=== PATIENT | female | born 1935 | race Caucasian/White ===

== ENCOUNTER → 2017-03-19 | Outpatient (CLI) | payer MEDICARE, OTHER ==
[~2017-03-19] MED LIST: ALEN70TA42 PO; ASCO100T15 PO; BILB30CA PO; BIOT10TA3 PO; BLUEBERRY PO; CALC-18 PO; CARB25DR2 OP; CELE-1 PO; CEP500 PO; CHOL400C10 PO; CHRO400T2 PO; COPP2CAP2 PO; CYCL1DRO6 OP; DOCU50CA PO; FERR159T PO; GLUC-158 PO; GLUC500C29 PO; HYAL0.5P MC; LUTE10TA3 PO; MAGN100T PO; METH500C6 PO; METH500T6 PO; MULT-1367 PO; MULT-865 PO; NIAC50TA13 PO; OMEG-11 PO; PER PO; PHYT100T4 PO; PROP10DR5 OP; SELE50TA16 PO; SYSTANEPT OD; THIA25PO MC; UBID1CAP94 PO; VITA100T PO; VITA1CAP46 PO; ZINC10LO9 PO; [UNRECOGNIZED DRUG - CODE] MC; [UNRECOGNIZED DRUG - CODE] MC; [UNRECOGNIZED DRUG - CODE] MC; [UNRECOGNIZED DRUG - CODE] MC; [UNRECOGNIZED DRUG - CODE] MC; [UNRECOGNIZED DRUG - CODE] OP; [UNRECOGNIZED DRUG - CODE] PO; [UNRECOGNIZED DRUG - CODE] PO; [UNRECOGNIZED DRUG - OTHER] PO; [UNRECOGNIZED DRUG - OTHER] PO; [UNRECOGNIZED DRUG - OTHER] PO
[2017-03-19 12:51] LABS: PLATELET COUNT, AUTOMATED 255 K/uL (150-450)
== END ==
LOC: LAB 12:06
PROVIDERS: ATTEND Internal Medicine Hematology & Oncology
DX: C20 Malignant neoplasm of rectum (principal)
CPT/HCPCS: 36415; 82040; 82247; 82310; 82374; 82378; 82435; 82565; 82947; 84075; 84132; 84155; 84295; 84450; 84460; 84520; 85025

== ENCOUNTER → 2017-03-19 | Outpatient (CLI) | payer MEDICARE, OTHER | LOC: LAB 12:00 | PROVIDERS: ATTEND Internal Medicine | DX: E05.20 Thyrotoxicosis with toxic multinodular goiter without thyrotoxic crisis or storm (principal); C20 Malignant neoplasm of rectum | CPT/HCPCS: 36415; 82040; 82247; 82310; 82374; 82378; 82435; 82565; 82947; 84075; 84132; 84155; 84295; 84439; 84443; 84450; 84460; 84481; 84520; 85025 ==

== ENCOUNTER 2017-04-09 01:36 | Inpatient (IN) | payer MEDICARE, OTHER ==
[~2017-04-09] VITALS: Ht 165.1 cm; Wt 56.2 kg
--- NOTE | 2017-04-09 01:39 | ER Report ---
History and Physical Time Seen By MD: 01:39 HPI/ROS CHIEF COMPLAINT: Abdominal distention HISTORY OF PRESENT ILLNESS: 81-year-old female with a history of colorectal cancer status post colonic resection presents ambulatory to the ER complaining of abdominal distention and pain since 8 PM last night. Patient states she ate a normal dinner. After dinner she was working on the computer when abdomen came distended and hard. She had a small bowel movement, but she's not passed any gas or stool for the last 6 hours. She presents here to the ER with severe abdominal pain and cramps. She is suspicious she may have a bowel obstruction. Patient denies dysuria, frequency or hematuria. Patient denies fever or chills. She's had severe nausea but no vomiting. Patient states her primary care noted. Her CA-125 was elevated suspicious for recurrence of her disease. Her primary care doctor had ordered a CT scan which is not yet been performed. REVIEW OF SYSTEMS: Respiratory: No cough, no dyspnea. Cardiovascular: No chest pain, no palpitations. Gastrointestinal: As above Musculoskeletal: No back pain. Allergies: Coded Allergies: Mold Extracts (Verified Allergy, Mild, 04/23/07) lactose (Verified Adverse Reaction, Intermediate, GI DISTRESS, 01/01/11) meperidine (Verified Adverse Reaction, Mild, NAUSEA/VOMITING, 04/23/07) acetaminophen (Verified Adverse Reaction, Unknown, vomiting, 02/03/14) oxycodone (Verified Adverse Reaction, Unknown, vomiting, 02/03/14) Uncoded Allergies: DUST (Allergy, Mild, 04/23/07) Home Meds Reported Medications Gluc/Italo-Msm#1/Vit C/Amor/Bor ([id number] COMPLEX CPLT) 1 Each Tablet, 1 EACH PO DAILY 06/15/15 Mineral Oil/Petrolatum,White (REFRESH P.M. OINTMENT) 3.5 Gm Oint...g., 3.5 GM OP QDAY 05/22/15 Chromium Amino Acid Chelate (CHROMIUM) Unknown Strength Tablet, 400 MCG PO 05/22/15 Copper Gluconate (COPPER) 2 Mg Capsule, 1.5 MG PO QDAY, CAPSULE 05/22/15 Calcium Carbonate (CALCIUM) 500 Mg Tab.chew, 125 MG PO QDAY, TAB.CHEW 05/22/15 Niacin (NIACIN) Unknown Strength Tablet, 50 MG PO TID 05/22/15 Cholecalciferol (Vitamin D3) (VITAMIN D) 400 Unit Capsule, 400 UNIT PO, CAPSULE 05/22/15 Carboxymethylcell/Hypromellose (GENTEAL GEL DROPS) 25 Ml Drp.lq.gel, 25 ML OP 02/03/14 Polyeth Glycol/Propylene Glyco (SYSTANE 0.3-0.4% EYE DROPS) 0.05 Ml Soln, 0.05 ML OD 02/03/14 Ubidecarenone/Vit E Acetate (CO Q-10 100 MG SOFTGEL) 1 Each Capsule, 1 EACH PO, CAPSULE 02/03/14 Lutein (LUTEIN) 10 Mg Tablet, 10 MG PO 02/03/14 Multivitamin (DAILY MULTIPLE VITAMIN) 1 Each Tablet, 1 EACH PO 02/03/14 Fish Oil/[place]-3 Fatty Acids (Fish Oil 1,000 Mg Capsule) 1 Cap Capsule, 1 CAP PO BID 01/07/11 Cyclosporine (Restasis) 32 Ea Droperette, 1 EA OP BID 01/07/11 Discontinued Reported Medications Propylene Glycol/Peg 400 (SYSTANE GEL EYE DROPS) 10 Ml Drops.gel, 10 ML OP PRN 05/22/15 Past Medical/Surgical History Patient has a past medical history of colon cancer, stress incontinence, arthritis, hypothyroidism, colorectal cancer, hernias, hemorrhoids,. Patient is a surgical history of eye surgery, goiter removal, left shoulder scrubbed, bilateral knee replacement, right shoulder surgery, tubal ligation,. Reviewed Nurses Notes: Yes Old Medical Records Reviewed: Yes Hx Smoking: No Hx Alcohol Use: No Constitutional Vital Sign - Last 24 Hours 04/09/17 04/09/17 04/09/17 04/09/17 01:46 01:47 01:51 01:56 Temp 98.0 Pulse 54 53 Resp 20 B/P (MAP) 184/91 (122) Pulse Ox 95 94 O2 Delivery Room Air 04/09/17 04/09/17 04/09/17 04/09/17 02:00 02:01 02:11 02:20 Pulse 48 45 Resp 10 B/P (MAP) 156/88 (110) 132/93 (106) Pulse Ox 91 96 04/09/17 04/09/17 04/09/17 04/09/17 02:21 02:26 02:34 03:00 Pulse 45 48 Resp 15 21 B/P (MAP) 146/81 (102) Pulse Ox 93 87 95 04/09/17 04/09/17 03:14 03:14 Pulse 44 Pulse Ox 90 O2 Flow Rate 1.0 Physical Exam General Appearance: The patient is alert, has no immediate need for airway protection and no current signs of toxicity. Vital signs stable, afebrile, pulse ox normal Eyes: Pupils equal and round no injection. Respiratory: Chest is non tender, lungs are clear to auscultation. Cardiac: regular rate and rhythm Gastrointestinal: Abdomen is grossly distended and firm, no masses, bowel sounds decreased. Musculoskeletal: Neck: Neck is supple and non tender. Extremities have full range of motion and are non tender. Skin: No rashes or lesions. DIFFERENTIAL DIAGNOSIS: After history and physical exam differential diagnosis was considered for abdominal pain including but not limited to appendicitis, cholecystitis, gastritis , bowel obstruction, ileus, constipation and urinary tract infection. Medical Decision Making Data Points Result Diagram: 04/09/17 0142 04/09/17 0142 Laboratory Hematology Test 04/09/17 01:42 Red Blood Count 5.97 M/uL (4.17-5.56) Mean Corpuscular Volume 88.7 fL (80.0-96.0) Mean Corpuscular Hemoglobin 30.0 pg (26.0-33.0) Mean Corpuscular Hemoglobin Concent 33.8 g/dL (32.0-36.0) Red Cell Distribution Width 13.5 % (11.5-14.5) Mean Platelet Volume 8.1 fL (7.2-11.1) Neutrophils (%) (Auto) 77.8 % (39.4-72.5) Lymphocytes (%) (Auto) 16.7 % (17.6-49.6) Monocytes (%) (Auto) 4.5 % (4.1-12.4) Eosinophils (%) (Auto) 0.7 % (0.4-6.7) Basophils (%) (Auto) 0.3 % (0.3-1.4) Nucleated RBC Relative Count (auto) 0.1 /100WBC Neutrophils # (Auto) 5.3 K/uL (2.0-7.4) Lymphocytes # (Auto) 1.1 K/uL (1.3-3.6) Monocytes # (Auto) 0.3 K/uL (0.3-1.0) Eosinophils # (Auto) 0.0 K/uL (0.0-0.5) Basophils # (Auto) 0.0 K/uL (0.0-0.1) Nucleated RBC Absolute Count (auto) 0.01 K/uL Urine Color Yellow Urine Clarity Turbid Urine pH 7.0 pH (4.8-9.5) Urine Specific [place] 1.015 Urine Protein Negative mg/dL (NEGATIVE) Urine Glucose (UA) Negative mg/dL (NEGATIVE) Urine Ketones Trace mg/dL (NEGATIVE) Urine Blood Negative (NEGATIVE) Urine Nitrite Negative (NEGATIVE) Urine Bilirubin Negative (NEGATIVE) Urine Urobilinogen Negative mg/dL (0.2-1.9) Urine Leukocyte Esterase Trace (NEGATIVE) Urine RBC None /HPF (0-2/HPF) Urine WBC 1 /HPF (0-5/HPF) Urine Squamous Epithelial Cells Many /LPF (</=FEW) Urine Amorphous Crystals Moderate /HPF Urine Bacteria Negative /HPF (NONE-FEW) Urine Mucus Few /HPF (NONE-FEW) Sodium Level 137 mmol/L (137-145) Potassium Level 3.9 mmol/L (3.5-5.0) Chloride Level 95 mmol/L (98-107) Carbon Dioxide Level 31 mmol/L (22-31) Blood Urea Nitrogen 24 mg/dl (7-18) Creatinine 0.90 mg/dl (0.52-1.04) Glomerular Filtration Rate Calc > 60.0 Random Glucose 118 mg/dl (75-110) Calcium Level 10.8 mg/dl (8.4-10.2) Total Bilirubin 0.6 mg/dl (0.2-1.3) Aspartate Amino Transf (AST/SGOT) 47 U/L (0-35) Alanine Aminotransferase (ALT/SGPT) 48 U/L (0-56) Alkaline Phosphatase 112 U/L (0-126) Total Protein 8.5 gm/dl (6.3-8.2) Albumin 4.8 g/dl (3.5-5.0) Amylase Level 120 U/L (0-110) Lipase 190 U/L (23-300) Chemistry Test 04/09/17 01:42 White Blood Count 6.8 k/uL (4.5-11.0) Red Blood Count 5.97 M/uL (4.17-5.56) Hemoglobin 17.9 g/dL (12.0-16.0) Hematocrit 53.0 % (34.0-47.0) Mean Corpuscular Volume 88.7 fL (80.0-96.0) Mean Corpuscular Hemoglobin 30.0 pg (26.0-33.0) Mean Corpuscular Hemoglobin Concent 33.8 g/dL (32.0-36.0) Red Cell Distribution Width 13.5 % (11.5-14.5) Platelet Count 231 K/uL (150-450) Mean Platelet Volume 8.1 fL (7.2-11.1) Neutrophils (%) (Auto) 77.8 % (39.4-72.5) Lymphocytes (%) (Auto) 16.7 % (17.6-49.6) Monocytes (%) (Auto) 4.5 % (4.1-12.4) Eosinophils (%) (Auto) 0.7 % (0.4-6.7) Basophils (%) (Auto) 0.3 % (0.3-1.4) Nucleated RBC Relative Count (auto) 0.1 /100WBC Neutrophils # (Auto) 5.3 K/uL (2.0-7.4) Lymphocytes # (Auto) 1.1 K/uL (1.3-3.6) Monocytes # (Auto) 0.3 K/uL (0.3-1.0) Eosinophils # (Auto) 0.0 K/uL (0.0-0.5) Basophils # (Auto) 0.0 K/uL (0.0-0.1) Nucleated RBC Absolute Count (auto) 0.01 K/uL Urine Color Yellow Urine Clarity Turbid Urine pH 7.0 pH (4.8-9.5) Urine Specific [place] 1.015 Urine Protein Negative mg/dL (NEGATIVE) Urine Glucose (UA) Negative mg/dL (NEGATIVE) Urine Ketones Trace mg/dL (NEGATIVE) Urine Blood Negative (NEGATIVE) Urine Nitrite Negative (NEGATIVE) Urine Bilirubin Negative (NEGATIVE) Urine Urobilinogen Negative mg/dL (0.2-1.9) Urine Leukocyte Esterase Trace (NEGATIVE) Urine RBC None /HPF (0-2/HPF) Urine WBC 1 /HPF (0-5/HPF) Urine Squamous Epithelial Cells Many /LPF (</=FEW) Urine Amorphous Crystals Moderate /HPF Urine Bacteria Negative /HPF (NONE-FEW) Urine Mucus Few /HPF (NONE-FEW) Glomerular Filtration Rate Calc > 60.0 Calcium Level 10.8 mg/dl (8.4-10.2) Total Bilirubin 0.6 mg/dl (0.2-1.3) Aspartate Amino Transf (AST/SGOT) 47 U/L (0-35) Alanine Aminotransferase (ALT/SGPT) 48 U/L (0-56) Alkaline Phosphatase 112 U/L (0-126) Total Protein 8.5 gm/dl (6.3-8.2) Albumin 4.8 g/dl (3.5-5.0) Amylase Level 120 U/L (0-110) Lipase 190 U/L (23-300) Urinalysis Test 04/09/17 01:42 Urine Color Yellow Urine Clarity Turbid Urine pH 7.0 pH (4.8-9.5) Urine Specific [place] 1.015 Urine Protein Negative mg/dL (NEGATIVE) Urine Glucose (UA) Negative mg/dL (NEGATIVE) Urine Ketones Trace mg/dL (NEGATIVE) Urine Blood Negative (NEGATIVE) Urine Nitrite Negative (NEGATIVE) Urine Bilirubin Negative (NEGATIVE) Urine Urobilinogen Negative mg/dL (0.2-1.9) Urine Leukocyte Esterase Trace (NEGATIVE) Urine RBC None /HPF (0-2/HPF) Urine WBC 1 /HPF (0-5/HPF) Urine Squamous Epithelial Cells Many /LPF (</=FEW) Urine Amorphous Crystals Moderate /HPF Urine Bacteria Negative /HPF (NONE-FEW) Urine Mucus Few /HPF (NONE-FEW) EKG/Imaging Imaging Results: CT scan of the abdomen and pelvis with IV contrast was obtained. The results of the study are CT of the abdomen and pelvis with contrast: Indication: Bloating and nausea. History of colon cancer. Technique: Helical CT was performed through the abdomen and pelvis following IV contrast enhancement with 75 cc of Isovue-370. Multiplanar reconstructions are reviewed. One of the following dose optimization techniques was utilized in the performance of this exam: Automated exposure control; adjustment of the mA and/ or kV according to the patient's size; or use of an iterative reconstruction technique. Specific details can be referenced in the facility's radiology CT exam operational policy. Comparison: 05/08/2016 Lower lung corral: There is minimal linear parenchymal scarring at both bases. No acute process or significant change is noted. Liver: Tiny cysts in the left lobe appear unchanged. No solid mass lesions are clearly identified. There is uniform enhancement of the venous structures. Gallbladder/biliary tree: The gallbladder is normal in size and homogeneous in density. The bile ducts are not dilated. Pancreas: Normal in size, shape, and density. No evidence of acute inflammation or fluid. Spleen: Normal in size, shape, and density. Adrenal glands: Within normal limits. Kidneys/urinary bladder: A tiny cyst in the left kidney appears unchanged. The kidneys are otherwise normal in size, shape, and density. There are no signs of obstructive uropathy. The urinary bladder is unremarkable, as visualized. Intestinal structures: The stomach is dilated and filled with fluid. There are multiple markedly dilated and fluid-filled loops of small intestine. The distal small intestine does not appear dilated. There are postoperative changes in the right lower quadrant. The colon is not dilated, but there is a moderate amount of stool throughout the colonic lumen. The pattern is consistent with mechanical small bowel obstruction. There are no signs of mass, fluid collection , or circumscribed inflammatory process. There appears to be some twisting of the vascular structures in the mesentery small bowel, which may be a sign of adhesions or volvulus. Surgical consultation is recommended. Pelvis: The uterus is absent. No mass or fluid collection is identified. Aorta and vascular structures: Mild atherosclerotic calcification appears unchanged. There is no evidence of aneurysm. Ascites or fluid collections: There is minimal ascites fluid in the pelvis. No circumscribed fluid collection is identified. Skeletal structures: There is chronic degenerative disc disease and osteoarthritis in the spine and hips. No acute skeletal deformity is clearly identified. Impression: There is an abnormal intestinal gas pattern, compatible with mechanical small bowel obstruction. No mass, fluid collection, or inflammatory process is identified. The findings are most likely related to adhesions or possible volvulus. Surgical consultation is recommended. A preliminary report was called to Dr. Steel at [facility] at 0320 hours. The study was read by the radiologist. I viewed the images myself on the PACS system. ED Course/Re-evaluation Clinical Indication for ER IV: Hydration, IV Access ED Course Patient was admitted to an examination room. H&P was done. The differential diagnoses was considered. On clinical examination. Patient has a grossly distended abdomen. She's having bilious vomiting. Her clinical presentation is suspicious for bowel obstruction with her previous surgical history. Patient 's treated with IV fluid hydration, Zofran. Diagnostic studies are sent off. Her H&H is elevated suggesting hemoconcentration. Remainder of her diagnostic studies are unremarkable. A CT scan of the abdomen and pelvis is performed which shows obvious mechanical small bowel obstruction. Patient wanted NG placed. She'll be admitted to the surgical service. Case was discussed with Dr. Alcala as noted below. 04/09/2017 3:35:49 am case discussed with on-call general surgeon , who accepts the patient for admission for small bowel obstruction. Brief holding orders will be written. Patient be seen in the morning Decision to Disposition Date: Apr 09, 2017 Decision to Disposition Time: 03:27 Depart Departure Latest Vital Signs Vital Signs Date Time Temp Pulse Resp B/P (MAP) Pulse Ox O2 Delivery O2 Flow Rate FiO2 04/09/17 03:14 1.0 04/09/17 03:14 44 90 04/09/17 03:00 146/81 (102) 04/09/17 02:26 21 04/09/17 01:46 98.0 Room Air Impression: Primary Impression: Small bowel obstruction Additional Impression: History of colon cancer Condition: Improved Disposition: Admitted from ER Referrals: ELODIA COLLINS MD (PCP) Problem Qualifiers MIKE STEEL DO Apr 09, 2017 01:39
[2017-04-09] MEDS ORDERED: NS(*) 0.9% 1000 ML BAG 1,000 ML IV ONE (01:56)
[2017-04-09] MEDS ORDERED: ONDANSETRON 4 MG/2 ML VIAL IVP ONE (02:00)
[2017-04-09] MEDS ORDERED: fentaNYL CITR 100 MCG/2 ML AMP IVP ONE (02:00)
[2017-04-09] MEDS ORDERED: IOPAMIDOL 76% 75 ML INFUS BTL 75 ML ONE (02:06)
[2017-04-09] MEDS ORDERED: NS(*) 0.9% 10 ML VIAL 20 ML ONE (02:06)
[2017-04-09 02:09] LABS: PLATELET COUNT, AUTOMATED 231 K/uL (150-450)
--- NOTE | 2017-04-09 03:34 | RADIOLOGY IMAGING REPORT ---
FACILITY: [facility] - [place] PATIENT NAME: Juana Trujillo : 1935 MR: [id number] V: [id number] EXAM DATE: ORDERING PHYSICIAN: MIKE STEEL TECHNOLOGIST: [place] [facility] [place]: Juana Trujillo : 1935 Visit/Account:[id number] Date of Sevice: 04/09/2017 CT of the abdomen and pelvis with contrast: Indication: Bloating and nausea. History of colon cancer. Technique: Helical CT was performed through the abdomen and pelvis following IV contrast enhancement with 75 cc of Isovue-370. Multiplanar reconstructions are reviewed. One of the following dose optimization techniques was utilized in the performance of this exam: Autom ated exposure control; adjustment of the mA and/or kV according to the patient's size; or use of an i terative reconstruction technique. Specific details can be referenced in the facility's radiology C T exam operational policy. Comparison: 05/08/2016 Lower lung corral: There is minimal linear parenchymal scarring at both bases. No acute process or si gnificant change is noted. Liver: Tiny cysts in the left lobe appear unchanged. No solid mass lesions are clearly identified. Th ere is uniform enhancement of the venous structures. Gallbladder/biliary tree: The gallbladder is normal in size and homogeneous in density. The bile duct s are not dilated. Pancreas: Normal in size, shape, and density. No evidence of acute inflammation or fluid. Spleen: Normal in size, shape, and density. Adrenal glands: Within normal limits. Kidneys/urinary bladder: A tiny cyst in the left kidney appears unchanged. The kidneys are otherwise normal in size, shape, and density. There are no signs of obstructive uropathy. The urinary bladder is unremarkable, as visualized. Intestinal structures: The stomach is dilated and filled with fluid. There are multiple markedly dila rj and fluid-filled loops of small intestine. The distal small intestine does not appear dilated. Th ere are postoperative changes in the right lower quadrant. The colon is not dilated, but there is a m oderate amount of stool throughout the colonic lumen. The pattern is consistent with mechanical small bowel obstruction. There are no signs of mass, fluid collection, or circumscribed inflammatory proce ss. There appears to be some twisting of the vascular structures in the mesentery small bowel, which may be a sign of adhesions or volvulus. Surgical consultation is recommended. Pelvis: The uterus is absent. No mass or fluid collection is identified. Aorta and vascular structures: Mild atherosclerotic calcification appears unchanged. There is no evid ence of aneurysm. Ascites or fluid collections: There is minimal ascites fluid in the pelvis. No circumscribed fluid co llection is identified. Skeletal structures: There is chronic degenerative disc disease and osteoarthritis in the spine and h ips. No acute skeletal deformity is clearly identified. Impression: There is an abnormal intestinal gas pattern, compatible with mechanical small bowel obstr uction. No mass, fluid collection, or inflammatory process is identified. The findings are most likel y related to adhesions or possible volvulus. Surgical consultation is recommended. A preliminary report was called to Dr. Steel at [facility] [place] 0320 hours. Report Dictated By: Austen Medley MD at 04/09/2017 3:04 AM Report E-Signed By: Austen Medley MD at 04/09/2017 3:29 AM [id number]
--- NOTE | 2017-04-09 04:27 | RADIOLOGY IMAGING REPORT ---
FACILITY: [facility] PATIENT NAME: Juana Trujillo : 1935 MR: [id number] V: [id number] EXAM DATE: ORDERING PHYSICIAN: MIKE CULLEN TECHNOLOGIST: [place] [facility] [place] Tru[place] : 1935 Visit/Account:[id number] Date of Sevice: 04/09/2017 PORTABLE CHEST: Indication: NG tube placement. Technique: 2 frontal images were obtained. Comparison: 07/16/2010 Lines and tubes: The tip of the NG tube is just below the diaphragm, presumably in the cardia of the stomach. Further advancement is recommended. Skeletal and soft tissue structures: Intact and unremarkable. Heart and mediastinum: Within normal limits. Lung corral: Well-expanded and clear. Pleural spaces: Unremarkable. Impression: The tip of the NG tube is at the level of the proximal stomach. Further advancement is re commended. Report Dictated By: Austen Medley MD at 04/09/2017 4:19 AM Report E-Signed By: Austen Medley MD at 04/09/2017 4:22 AM WSN:[id number]
[2017-04-09 04:42] VITALS: BP 172/80
[2017-04-09] MEDS ORDERED: LR(*) 1000 ML BAG 1,000 ML IV PRN ×2 (05:00→07:17)
[2017-04-09] MEDS ORDERED: ONDANSETRON 4 MG/2 ML VIAL IVP PRN (05:05)
[2017-04-09] MEDS ORDERED: fentaNYL CITR 100 MCG/2 ML AMP IVP PRN (06:00)
[2017-04-09 07:00] VITALS: BP 147/70
--- NOTE | 2017-04-09 07:43 | General Surgery 1 H&P ---
History of Present Illness Chief Complaint abdominal pain History of Present Illness 81 yo female who had a sigmoid colectomy with ileostomy and the stoma closure several years ago presents with sudden onset of pain at 7 pm last night. she had nausea and abdominal distention. she had a small bm last pm. pain brought her to the ed. cbc was normal. ct suggests distal sbo. this am she is feeling better, no pain, nausea resolved. she has a small amount of flatus. History Other Past Surgeries: sigmoid colectomy and ileostomy, ileostomy closure. anal sphincter repair. operations on shoulder and knees. Home Meds Reported Medications Gluc/Italo-Msm#1/Vit C/Amor/Bor ([id number] COMPLEX CPLT) 1 Each Tablet, 1 EACH PO DAILY 06/15/15 Mineral Oil/Petrolatum,White (REFRESH P.M. OINTMENT) 3.5 Gm Oint...g., 3.5 GM OP QDAY 05/22/15 Chromium Amino Acid Chelate (CHROMIUM) Unknown Strength Tablet, 400 MCG PO 05/22/15 Copper Gluconate (COPPER) 2 Mg Capsule, 1.5 MG PO QDAY, CAPSULE 05/22/15 Calcium Carbonate (CALCIUM) 500 Mg Tab.chew, 125 MG PO QDAY, TAB.CHEW 05/22/15 Niacin (NIACIN) Unknown Strength Tablet, 50 MG PO TID 05/22/15 Cholecalciferol (Vitamin D3) (VITAMIN D) 400 Unit Capsule, 400 UNIT PO, CAPSULE 05/22/15 Carboxymethylcell/Hypromellose (GENTEAL GEL DROPS) 25 Ml Drp.lq.gel, 25 ML OP 02/03/14 Polyeth Glycol/Propylene Glyco (SYSTANE 0.3-0.4% EYE DROPS) 0.05 Ml Soln, 0.05 ML OD 02/03/14 Ubidecarenone/Vit E Acetate (CO Q-10 100 MG SOFTGEL) 1 Each Capsule, 1 EACH PO, CAPSULE 02/03/14 Lutein (LUTEIN) 10 Mg Tablet, 10 MG PO 02/03/14 Multivitamin (DAILY MULTIPLE VITAMIN) 1 Each Tablet, 1 EACH PO 02/03/14 Fish Oil/[place]-3 Fatty Acids (Fish Oil 1,000 Mg Capsule) 1 Cap Capsule, 1 CAP PO BID 01/07/11 Cyclosporine (Restasis) 32 Ea Droperette, 1 EA OP BID 01/07/11 Discontinued Reported Medications Propylene Glycol/Peg 400 (SYSTANE GEL EYE DROPS) 10 Ml Drops.gel, 10 ML OP PRN 05/22/15 Allergies: Coded Allergies: Mold Extracts (Verified Allergy, Mild, 04/23/07) lactose (Verified Adverse Reaction, Intermediate, GI DISTRESS, 01/01/11) meperidine (Verified Adverse Reaction, Mild, NAUSEA/VOMITING, 04/23/07) acetaminophen (Verified Adverse Reaction, Unknown, vomiting, 02/03/14) oxycodone (Verified Adverse Reaction, Unknown, vomiting, 02/03/14) Uncoded Allergies: DUST (Allergy, Mild, 04/23/07) Family History: FH: alcohol abuse FATHER, , Age:93 FH: arthritis MOTHER, , Age:91 brother FH: glaucoma brother FH: pancreatic cancer FATHER, , Age:93 Goiter brother Transient ischemic attacks MOTHER, , Age:91 Review of Systems History of Hypertension?: No History of Diabetes?: No History of DVT?: No Obstructive Sleep Apnea?: No History of Liver Disease?: No History of Kidney Disease?: No Respiratory: Denies Shortness of Breath, Denies Other Cardiovascular: Denies Chest Pain, Denies Other : Denies Dysuria, Denies Other Exam Vital Signs Date Time Temp Pulse Resp B/P (MAP) Pulse Ox O2 Delivery O2 Flow Rate FiO2 04/09/17 04:58 97 Oxy Mask 1.0 04/09/17 04:42 97.5 55 16 172/80 (110) General Appearance: Alert, Awake, No Acute Distress Cardiovascular: Regular Rate and Rhythm Respiratory: Clear to Auscultation GI: Abd Soft and Non-Tender (no masses, no incarcerated hernia) Medical Decision Making Data Points Result Diagram: 04/09/17 01404/09/17141 Assessment and Plan Problems: (1) Small bowel obstruction Status: Acute Assessment & Plan: will admit, npo and ng, iv hydration and analgesia. will try conservative approach first Copies to: LIZ MARSE MD Venous Thromboembolism Antithrombotics Is Pt On Any Antithrombotics?: No LIZ MARES MD Apr 09, 2017 07:43
[2017-04-09] MEDS ORDERED: MORPHINE 1 MG/ML 30 ML PCA IV PRN (07:45)
[2017-04-09] MEDS ORDERED: PANTOPRAZOLE SOD 40 MG IV VIAL IVP SCH (09:00)
[2017-04-09 10:56] VITALS: BP 141/77
[2017-04-09 11:00] VITALS: BP 141/77
--- NOTE | 2017-04-09 12:14 | General Surgery Progress Note ---
Subjective Progress Notes Subjective no pain no nausea, had bm Physical Exam Vital Signs Date Time Temp Pulse Resp B/P (MAP) Pulse Ox O2 Delivery O2 Flow Rate FiO2 04/09/17 11:00 97.7 49 12 141/77 (98) 94 Nasal Cannula 0.5 Intake and Output 04/10/17 07:00 # Voids 2 # Bowel Movements 2 GI: Soft and Non-Tender (ng with minimal output) Result Diagram: 04/09/17 0142 04/09/17 0142 Assessment and Plan Problems: (1) Small bowel obstruction Status: Acute Assessment & Plan: will admit, npo and ng, iv hydration and analgesia. will try conservative approach first 04/09/17 will try ugi series to evaluate sbo Exam Sepsis Risk: No Definite Risk LIZ MARES MD Apr 09, 2017 12:14
[2017-04-09] MEDS ORDERED: DIATRIZOATE MEGL/DIATRIZOA SOD 120 ML SOLN PO ONE (12:25)
[2017-04-09 14:53] VITALS: BP 133/70
--- NOTE | 2017-04-09 14:54 | RADIOLOGY IMAGING REPORT ---
[place] [facility] [place] Juana Trujillo : 1935 MR: [id number] V: [id number] EXAM DATE: ORDERING PHYSICIAN: LIZ MARES TECHNOLOGIST: Location: [facility] Patient: Juana Trujillo : 1935 Visit/Account:[id number] Date of Sevice: 04/09/2017 SMALL BOWEL SERIES Indication: sbo Comparison: None. Findings: Patient was given Gastrografin through the nasogastric tube. Stomach demonstrates normal f old pattern. Contrast is seen in the colon at 1.5 hours. Small bowel is normal in caliber. IMPRESSION: Small bowel follow-through demonstrates contrast in the colon at 1.5 hours, normal. No e vidence of mechanical obstruction. Report Dictated By: Hunter Michael at 04/09/2017 2:49 PM Report E-Signed By: Hunter Michael at 04/09/2017 2:50 PM [id number]
[2017-04-09 17:26] VITALS: Ht 165.1 cm; Wt 56.2 kg
--- NOTE | 2017-04-09 17:36 | General Surgery Progress Note ---
Subjective Progress Notes Subjective no complaints of pain. Physical Exam Vital Signs Date Time Temp Pulse Resp B/P (MAP) Pulse Ox O2 Delivery O2 Flow Rate FiO2 04/09/17 14:53 98.4 43 14 133/70 (91) 93 Nasal Cannula 0.5 Intake and Output 04/10/17 07:00 Intake Total 888 ml Output Total 100 ml Balance 788 ml Intake IV Total 888 ml Output Gastric Drainage Total 100 ml # Voids 3 # Bowel Movements 3 General Appearance: Alert, Awake, No Acute Distress GI: Soft and Non-Tender, Other (multiple bms) Result Diagram: 04/09/17 01404/09/17 014 Assessment and Plan Problems: (1) Small bowel obstruction Status: Acute Assessment & Plan: will admit, npo and ng, iv hydration and analgesia. will try conservative approach first 04/09/17 will try ugi series to evaluate sb0 04/09/17 small bowel series reveals no sbo. will dc ng and feed. Exam Sepsis Risk: No Definite Risk LIZ MARES MD Apr 09, 2017 17:35
[2017-04-09 19:03] VITALS: BP 109/52
[2017-04-10 03:35] VITALS: BP 127/75
[2017-04-10 07:19] VITALS: BP 111/74
--- NOTE | 2017-04-10 07:33 | General Surgery Progress Note ---
Subjective Progress Notes Subjective no complaints of pain or nausea. tolerating po diet. Physical Exam Vital Signs Date Time Temp Pulse Resp B/P (MAP) Pulse Ox O2 Delivery O2 Flow Rate FiO2 04/10/17 07:24 93 Room Air 04/10/17 07:19 98.0 46 12 111/74 (86) 04/09/17 19:48 0.5 General Appearance: Alert, Awake, No Acute Distress GI: Soft and Non-Tender Result Diagram: 04/09/17 0142 04/09/17 0142 Assessment and Plan Problems: (1) Small bowel obstruction Status: Acute Assessment & Plan: will admit, npo and ng, iv hydration and analgesia. will try conservative approach first 04/09/17 will try ugi series to evaluate sb0 04/09/17 small bowel series reveals no sbo. will dc ng and feed. 04/10/17 doing well home today Exam Sepsis Risk: No Definite Risk LIZ MARES MD Apr 10, 2017 07:33
--- NOTE | 2017-04-10 07:35 | Short(Outpt) Discharge Summary ---
Discharge Summary Reason for Hosp/Final Diag: (1) Small bowel obstruction Status: Acute Hospital Course & Plan: will admit, npo and ng, iv hydration and analgesia. will try conservative approach first 04/09/17 will try ugi series to evaluate sb0 04/09/17 small bowel series reveals no sbo. will dc ng and feed. 04/10/17 doing well home today Departure Discharge to: Home Discharge Instructions Home Meds Reported Medications Gluc/Italo-Msm#1/Vit C/Amor/Bor (QJIAOLO-ULFCQ-VCO COMPLEX CPLT) 1 Each Tablet, 1 EACH PO DAILY 06/15/15 Mineral Oil/Petrolatum,White (REFRESH P.M. OINTMENT) 3.5 Gm Oint...g., 3.5 GM OP QDAY 05/22/15 Chromium Amino Acid Chelate (CHROMIUM) Unknown Strength Tablet, 400 MCG PO 05/22/15 Copper Gluconate (COPPER) 2 Mg Capsule, 1.5 MG PO QDAY, CAPSULE 05/22/15 Calcium Carbonate (CALCIUM) 500 Mg Tab.chew, 125 MG PO QDAY, TAB.CHEW 05/22/15 Niacin (NIACIN) Unknown Strength Tablet, 50 MG PO TID 05/22/15 Cholecalciferol (Vitamin D3) (VITAMIN D) 400 Unit Capsule, 400 UNIT PO, CAPSULE 05/22/15 Carboxymethylcell/Hypromellose (GENTEAL GEL DROPS) 25 Ml Drp.lq.gel, 25 ML OP 02/03/14 Polyeth Glycol/Propylene Glyco (SYSTANE 0.3-0.4% EYE DROPS) 0.05 Ml Soln, 0.05 ML OD 02/03/14 Ubidecarenone/Vit E Acetate (CO Q-10 100 MG SOFTGEL) 1 Each Capsule, 1 EACH PO, CAPSULE 02/03/14 Lutein (LUTEIN) 10 Mg Tablet, 10 MG PO 02/03/14 Multivitamin (DAILY MULTIPLE VITAMIN) 1 Each Tablet, 1 EACH PO 02/03/14 Fish Oil/[place]-3 Fatty Acids (Fish Oil 1,000 Mg Capsule) 1 Cap Capsule, 1 CAP PO BID 01/07/11 Cyclosporine (Restasis) 32 Ea Droperette, 1 EA OP BID 01/07/11 Discontinued Reported Medications Propylene Glycol/Peg 400 (SYSTANE GEL EYE DROPS) 10 Ml Drops.gel, 10 ML OP PRN 05/22/15 Diet: Regular Activity: As Tolerated Copies to: ELODIA COLLINS MD; JAMIE HERNANDEZ MD; LIZ MARES MD, TOM MD Apr 10, 2017 07:35
--- NOTE | 2017-04-10 10:32 | Medical Nutrition Therapy ---
Nutrition Anthropometrics Height (Inches): 65.00 Weight (Pounds): 124 Weight (Calculated Kilograms): 56.245 Josef Nutrition Score: Probably Inadequate Josef Nutrition Risk Score: 17 Dietary Referral Nutrition Risk Factors: Nutrition Risk Comment: Physical Findings Physical Appearance: Skin Appearance Skin Appearance: Edema Edema Location Modifier: Edema Location: Type of Edema: Degree of Edema: Gastrointestinal Symptoms GI Symtoms: Nausea, Bloating, Change in Bowel Pattern Tube Present: NG Bowel Sounds: Recent Bowel Pattern: Stool Characteristics: Nutritional Diagnosis Nutritional Risk Acuity 1: Short Bowel Syndrome Nutritional Risk Acuity 3: Cancer Nutritional Acuity: 3-Mild Energy Requirement: 1400 (25kcal/kg) Protein Requirement: 61 (1.1g/kg) Fluid Requirement: 1400 (25 ml/kg) Diet Type: NPO (Nothing by Mouth) Nutrition Monitoring & Eval RD Patient Assessment Time: [address] Assessment Type: RD Assessment Patient Nutrition Acuity: 3-Mild Follow Up Date: Apr 14, 2017 Nutritional Comment: 04/10) Pt admitted for abdominal pain possible sbo. PMF: rectal cancer, sigmoid colectomy and ileostomy closure, anal sphincter repair. Pt has NG tube for suction. Labs: 04/09) Glu 118, BUN 24, Cre 0.9, Alb 4.8. Diet is LUCITA .SBO has been resolved. Pt will be discharged today. JAGDEEP BENAVIDES Apr 09, 2017 13:35
== END 2017-04-10 11:03 | disposition home or self-care (01) | DRG 390 ==
LOC: ER 01:39 → MED 03:35
PROVIDERS: ADMIT Surgery; ATTEND Surgery
DX: K56.600 Partial intestinal obstruction, unspecified as to cause (principal); E73.9 Lactose intolerance, unspecified; E03.9 Hypothyroidism, unspecified; Z96.653 Presence of artificial knee joint, bilateral; Z88.5 Allergy status to narcotic agent; Z88.8 Allergy status to other drugs, medicaments and biological substances; Z85.038 Personal history of other malignant neoplasm of large intestine; Z90.710 Acquired absence of both cervix and uterus
CPT/HCPCS: 71045; 74177; 74250; 81001; 82040; 82150; 82247; 82310; 82374; 82435; 82565; 82947; 83690; 84075; 84132; 84155; 84295; 84450; 84460; 84520; 85025; 86304; 94667; 96361; 96374; 99285; C9113; J2405; J7030; J7120; Q9967

== ENCOUNTER → 2017-05-12 | Outpatient (CLI) | payer MEDICARE, OTHER ==
[2017-04-09 17:26] VITALS: BMI 20.6
--- NOTE | 2017-05-12 16:42 | RADIOLOGY IMAGING REPORT ---
FACILITY: [facility] - [place] PATIENT NAME: CASEY PHELPS : [id number] MR: [id number] V: [id number] EXAM DATE: ORDERING PHYSICIAN: ELODIA COLLINS TECHNOLOGIST: Letty Reinoso PROCEDURE:BILATERAL DIGITAL SCREENING MAMMOGRAM WITH CAD ASSISTED INTERPRETATION & 3D TOMOSYNTHESIS COMPARISON:04/22/2016, 04/20/2015 TECHNIQUE:Routine CC & MLO views of both breasts were performed INDICATIONS:screening FINDINGS: Breast tissue demonstrates scattered fibroglandular densities. There is no dominant mass or suspicious microcalcifications in either breast. DIAGNOSTIC CATEGORY 1--NEGATIVE. RECOMMENDATIONS: ROUTINE MAMMOGRAM IN 1 YEAR AND CLINICAL EVALUATION. IMPRESSION: BIRADS 1: Negative. Dictated by: Mac Noble M.D. on 05/12/2017 at 15:57 Transcribed by: THALIA on 05/12/2017 at 16:05 Approved by: Mac Noble M.D. on 05/12/2017 at 16:40 [facility]
== END ==
LOC: MAMO 02:34
PROVIDERS: ATTEND Family Medicine
DX: Z12.31 Encounter for screening mammogram for malignant neoplasm of breast (principal)
CPT/HCPCS: 77063; 77067

== ENCOUNTER → 2017-07-09 | Outpatient (CLI) | payer MEDICARE, OTHER ==
[2017-04-09 17:26] VITALS: BMI 20.6
== END ==
LOC: LAB 10:31
PROVIDERS: ATTEND Internal Medicine
DX: E05.20 Thyrotoxicosis with toxic multinodular goiter without thyrotoxic crisis or storm (principal)
CPT/HCPCS: 36415; 84443

== ENCOUNTER → 2017-07-23 | Outpatient (CLI) | payer MEDICARE, OTHER ==
[2017-04-09 17:26] VITALS: BMI 20.6
== END ==
LOC: RESP 19:50
PROVIDERS: ATTEND Family Medicine
DX: G47.33 Obstructive sleep apnea (adult) (pediatric) (principal)

== ENCOUNTER → 2017-08-11 | Outpatient (CLI) | payer MEDICARE, OTHER ==
[2017-04-09 17:26] VITALS: BMI 20.6
== END ==
LOC: LAB 12:09
PROVIDERS: ATTEND Internal Medicine
DX: E05.20 Thyrotoxicosis with toxic multinodular goiter without thyrotoxic crisis or storm (principal)
CPT/HCPCS: 36415; 84439; 84443; 84481

== ENCOUNTER → 2017-10-19 | Outpatient (CLI) | payer MEDICARE, OTHER ==
[2017-04-09 17:26] VITALS: BMI 20.6
== END ==
LOC: LAB 12:36
PROVIDERS: ATTEND Internal Medicine
DX: E05.20 Thyrotoxicosis with toxic multinodular goiter without thyrotoxic crisis or storm (principal)
CPT/HCPCS: 36415; 84439; 84443; 84481

== ENCOUNTER → 2017-10-19 | Outpatient (CLI) | payer MEDICARE, OTHER ==
[2017-04-09 17:26] VITALS: BMI 20.6
[2017-10-19 13:07] LABS: PLATELET COUNT, AUTOMATED 250 K/uL (150-450)
== END ==
LOC: LAB 12:39
PROVIDERS: ATTEND Internal Medicine Hematology & Oncology
DX: C20 Malignant neoplasm of rectum (principal); R14.0 Abdominal distension (gaseous); R19.5 Other fecal abnormalities; R97.0 Elevated carcinoembryonic antigen [CEA]
CPT/HCPCS: 82040; 82247; 82310; 82374; 82378; 82435; 82565; 82947; 84075; 84132; 84155; 84295; 84450; 84460; 84520; 85025

== ENCOUNTER → 2017-10-28 | Outpatient (CLI) | payer MEDICARE, OTHER ==
[2017-04-09 17:26] VITALS: BMI 20.6
[~2017-10-28] MED LIST changes: +CALC1TAB32 PO; +CARB10DR2 OP; +CHOL10005 PO; +DICY10CA11 PO; +DOCU100C49 PO; +GLUC1TAB66 PO; +GLUCOSAMINE PO; +HYDR30CR10 TP; +LACT1CAP6 PO; +LOTE5GEL OP; +LUTE1CAP6 PEG; +MAGN250T34 PO; +MUPI1OIN2 TOP; +SELE50TA PO; -SELE50TA16 PO; +VIT1CAPS9 PO; +VIT1TABL PO; +Zicam; +[UNRECOGNIZED DRUG - OTHER] PO; +[UNRECOGNIZED DRUG - OTHER] PO; +[UNRECOGNIZED DRUG - OTHER] PO
== END ==
LOC: RESP 20:47
PROVIDERS: ATTEND Family Medicine
DX: Z02.9 Encounter for administrative examinations, unspecified (principal)

== ENCOUNTER → 2018-01-23 | Outpatient (CLI) | payer MEDICARE, OTHER ==
[2017-04-09 17:26] VITALS: BMI 20.6
== END ==
LOC: LAB 13:32
PROVIDERS: ATTEND Internal Medicine
DX: E05.20 Thyrotoxicosis with toxic multinodular goiter without thyrotoxic crisis or storm (principal)
CPT/HCPCS: 36415; 84439; 84443; 84481

== ENCOUNTER → 2018-01-23 | Outpatient (CLI) | payer MEDICARE, OTHER ==
[2017-04-09 17:26] VITALS: BMI 20.6
[2018-01-23 14:02] LABS: PLATELET COUNT, AUTOMATED 259 K/uL (150-450)
== END ==
LOC: LAB 13:26
PROVIDERS: ATTEND Internal Medicine Hematology & Oncology
DX: R14.0 Abdominal distension (gaseous) (principal); C20 Malignant neoplasm of rectum; R19.5 Other fecal abnormalities; R97.0 Elevated carcinoembryonic antigen [CEA]
CPT/HCPCS: 36415; 82040; 82247; 82310; 82374; 82378; 82435; 82565; 82947; 84075; 84132; 84155; 84295; 84450; 84460; 84520; 85025

== ENCOUNTER → 2018-02-02 | Outpatient (CLI) | payer MEDICARE, OTHER ==
[2017-04-09 17:26] VITALS: BMI 20.6
[~2018-02-02] MED LIST changes: +GADOBENATE 529MG/1ML 15ML VIAL IVP ONE
--- NOTE | 2018-02-02 09:35 | RADIOLOGY IMAGING REPORT ---
FACILITY: [facility] PATIENT NAME: Juana Trujillo : 1935 MR: [id number] V: [id number] EXAM DATE: ORDERING PHYSICIAN: JAMIE HERNANDEZ TECHNOLOGIST: Location: [facility] Patient: Juana Trujillo : 1935 Visit/Account:[id number] Date of Sevice: 02/02/2018 ORBITS FOREIGN BODY 1 VIEW Additional Pertinent history: Metal screen for MRI One view obtained COMPARISON STUDIES: No relevant priors FINDINGS: Metallic foreign bodies: none Sinuses: negative IMPRESSION: No metallic foreign bodies in either orbit. Report Dictated By: Austen Guevara MD at 02/02/2018 9:30 AM Report E-Signed By: Austen Guevara MD at 02/02/2018 9:30 AM WSN:[email or web address]
--- NOTE | 2018-02-02 11:39 | RADIOLOGY IMAGING REPORT ---
FACILITY: [facility] - [place] PATIENT NAME: Juana Trujillo : 1935 MR: [id number] V: [id number] EXAM DATE: ORDERING PHYSICIAN: JAMIE HERNANDEZ TECHNOLOGIST: [facility] Patient: Juana Trujillo : 1935 Visit/Account:[id number] Date of Sevice: 02/02/2018 Study: MRI of the brain without and with gadolinium contrast. Indication: Rectal carcinoma, elevated CEA, new daily persistent headache Comparison study: None Contrast used: 11 mL MultiHance gadolinium contrast Technique: Multiplanar MRI sequences were obtained through the brain before and after the administrat ion of gadolinium contrast. The examination demonstrates no evidence of acute intracranial hemorrhage. There is no evidence of ex tra-axial collection or hydrocephalus. There are patchy areas of high T2-weighted signal present within the peripheral white matter of the s upratentorial brain. These areas are nonspecific in appearance. There is no evidence of mass effect or contrast enhancement associated with these areas. There is a discrete area of high T2-weighted signal present within the right brachium pontis. There is no evidence of contrast enhancement or mass effect associated with this lesion. This lesion is al so nonspecific in appearance. There are no previous studies available for comparison. These lesions may represent ischemic or inflammatory demyelination. There is mild atrophy present. The pituitary gland is unremarkable in appearance. There is no evidence of abnormality of the pineal gland. A diffusion-weighted sequence was performed and demonstrates no evidence of active ischemia. There is no evidence of active infarct The orbits are unremarkable. The paranasal sinuses are unremarkable Following the administration of gadolinium contrast, there is no abnormal intracranial contrast enhan cement. IMPRESSION: Nonspecific areas of high T2-weighted signal present within the brain parenchyma as descr ibed above. These areas do not enhance or exert mass effect. There is no evidence of intracranial metastatic disease. Report Dictated By: Keshav Parkinson at 02/02/2018 11:21 AM Report E-Signed By: Keshav Parkinson at 02/02/2018 11:35 AM WSN:[id number]
== END ==
LOC: MRI 00:31
PROVIDERS: ATTEND Internal Medicine Hematology & Oncology
DX: C20 Malignant neoplasm of rectum (principal); R97.0 Elevated carcinoembryonic antigen [CEA]; R19.5 Other fecal abnormalities; G44.52 New daily persistent headache (NDPH)
CPT/HCPCS: 70030; 70553; A9577

== ENCOUNTER → 2018-02-09 | Outpatient (CLI) | payer MEDICARE, OTHER ==
[2017-04-09 17:26] VITALS: BMI 20.6
[~2018-02-09] MED LIST changes: -GADOBENATE 529MG/1ML 15ML VIAL IVP ONE; +IOPAMIDOL 76% 50 ML INFUS BTL 100 ML ONE
--- NOTE | 2018-02-09 11:34 | RADIOLOGY IMAGING REPORT ---
FACILITY: [facility] - [place] PATIENT NAME: Juana Trujillo : 1935 MR: [id number] V: [id number] EXAM DATE: ORDERING PHYSICIAN: JAMIE HERNANDEZ TECHNOLOGIST: Location: [facility] Patient: Juana Trujillo : 1935 Visit/Account:[id number] Date of Sevice: 02/09/2018 CHEST/AB/PELV W/CONTRAST HISTORY: ADDITIONAL HISTORY: None. TECHNIQUE: Following administration of IV contrast axial images acquired through the chest abdomen a nd pelvis during the portal venous phase. Coronal and sagittal reformatting was also performed.Dose Lowering Technique One of the following dose optimization techniques was utilized in the performance of this exam: Autom ated exposure control; adjustment of the mA and/or kV according to the patient's size; or use of an i terative reconstruction technique. Specific details can be referenced in the facility's radiology C T exam operational policy. CONTRAST: 75 mL Isovue-370 COMPARISON: CT on pelvis April 09, [address] chest seven pelvis May 08, 2016 FINDINGS: CHEST: Lungs/Pleura: There Is a small amount linear scarring in the lower lobes that appears stable Mediastinum/lymph nodes: Negative. Heart/vessels: There are coronary artery calcifications Bones/soft tissues: Multinodular enlarged thyroid again seen, there are moderate spondylotic changes of the thoracolumbar spine. ABDOMEN AND PELVIS: Hepatobiliary: Several tiny hypodensities in the dome of the liver have remained stable and likely r epresent tiny cysts Spleen: Negative. Pancreas: Negative. Adrenals: Negative. Kidneys ureters and bladder : There is a 3 mm nonobstructing calculus lower pole the right kidney Genitalia: Hysterectomy GI: Surgical anastomosis again seen in the sigmoid colon and small bowel in the mid left abdomen. There is a moderate amount of fecal material seen throughout colon which can be seen with constipatio n. There is no demonstration of a bowel obstruction. Vessels/spaces/nodes: There are small shotty retroperitoneal lymph nodes Bones/soft tissues: There is now a ventral hernia in the midline in the upper abdomen containing dis quynh gastric antrum. The stomach does not appear to be obstructed There is laxity of the rectus sheath in the lower abdomen which remain stable. There are spondylotic changes throughout the lumbar spine Additional findings: None pertinent. IMPRESSION: There is been interval development of a ventral hernia in the midline of the upper abdomen containing distal gastric antrum of the stomach does not appear to be obstructed Postsurgical changes of large and small bowel as described. There is no evidence of bowel obstructio n although there is a moderate amount of fecal material throughout colon which can be seen with const ipation Nonobstructing right-sided nephrolithiasis Multinodular enlarged thyroid Report Dictated By: Caitie Maloney MD at 02/09/2018 11:19 AM Report E-Signed By: Caitie Maloney MD at 02/09/2018 11:29 AM WSN:[email or web address]
== END ==
LOC: CT 00:51
PROVIDERS: ATTEND Internal Medicine Hematology & Oncology
DX: C20 Malignant neoplasm of rectum (principal); R97.0 Elevated carcinoembryonic antigen [CEA]; R19.5 Other fecal abnormalities; G44.52 New daily persistent headache (NDPH); K43.9 Ventral hernia without obstruction or gangrene; N20.0 Calculus of kidney; E04.9 Nontoxic goiter, unspecified
CPT/HCPCS: 71260; 74177; Q9967

== ENCOUNTER → 2018-03-17 | Outpatient (CLI) | payer MEDICARE, OTHER ==
[2017-04-09 17:26] VITALS: BMI 20.6
[~2018-03-17] MED LIST changes: -IOPAMIDOL 76% 50 ML INFUS BTL 100 ML ONE
== END ==
LOC: RESP 20:49
PROVIDERS: ATTEND Family Medicine
DX: G47.33 Obstructive sleep apnea (adult) (pediatric) (principal)

== ENCOUNTER → 2018-06-07 | Outpatient (CLI) | payer MEDICARE, OTHER ==
[2017-04-09 17:26] VITALS: BMI 20.6
--- NOTE | 2018-06-10 08:24 | RADIOLOGY IMAGING REPORT ---
[place] [facility] [place] CASEY PHELPS : [id number] MR: [id number] V: [id number] EXAM DATE: [id number] ORDERING PHYSICIAN: MARY MULLER TECHNOLOGIST: Letty Reinoso PROCEDURE:BILATERAL DIGITAL SCREENING MAMMOGRAM WITH CAD ASSISTED INTERPRETATION & 3D TOMOSYNTHESIS COMPARISON:Prior mammograms 05/12/17, 04/22/16, 04/20/15, 04/18/14, 07/09/12. INDICATIONS:screening FINDINGS: The breasts are heterogeneously dense which can obscure small masses. The parenchymal pattern has remained stable allowing for difference in mammographic technique & patient positioning. DIAGNOSTIC CATEGORY 1--NEGATIVE. RECOMMENDATIONS: ROUTINE MAMMOGRAM AND CLINICAL EVALUATION. IMPRESSION: BIRADS 1: Negative. No significant abnormality is seen. Dictated by: Caitie Maloney M.D. on 06/08/2018 at 16:11 Transcribed by: DERREK on 06/09/2018 at 9:11 Approved by: Caitie Maloney M.D. on 06/10/2018 at 8:22 [facility]
== END ==
LOC: MAMO 00:57
PROVIDERS: ATTEND Family Medicine
DX: Z12.31 Encounter for screening mammogram for malignant neoplasm of breast (principal); Z80.3 Family history of malignant neoplasm of breast
CPT/HCPCS: 77063; 77067

== ENCOUNTER → 2018-08-09 | Outpatient (CLI) | payer MEDICARE, OTHER ==
[2017-04-09 17:26] VITALS: BMI 20.6
[2018-08-09 12:42] LABS: PLATELET COUNT, AUTOMATED 259 K/uL (150-450)
== END ==
LOC: LAB 12:24
PROVIDERS: ATTEND Internal Medicine Hematology & Oncology
DX: C20 Malignant neoplasm of rectum (principal); R97.0 Elevated carcinoembryonic antigen [CEA]; R19.5 Other fecal abnormalities; G44.52 New daily persistent headache (NDPH)
CPT/HCPCS: 36415; 82040; 82247; 82310; 82374; 82378; 82435; 82565; 82947; 84075; 84132; 84155; 84295; 84450; 84460; 84520; 85025

== ENCOUNTER 2018-09-29 00:45 | Day surgery (SDC) | payer MEDICARE, OTHER ==
[2017-04-09 17:26] VITALS: Ht 165.1 cm; Wt 52.2 kg
[~2018-09-29] VITALS: Ht 165.1 cm; Wt 52.2 kg
[2018-09-29] MEDS ORDERED: LIDOCAINE MPF 1% 5 ML VIAL ONE (07:25)
[2018-09-29] MEDS ORDERED: PROPOFOL EMUL(*) 10MG/ML 20 ML 60 ML ONE (07:25)
[2018-09-29] MEDS ORDERED: LIDOCAINE/SOD BICARB 8.4% SYR ID ONE (10:15)
[2018-09-29] MEDS ORDERED: NORMOSOL R SOLN(*) 1000 ML BAG 1,000 ML IV PRN (10:15)
[2018-09-29 10:40] VITALS: BP 155/69
--- NOTE | 2018-09-29 12:51 | Short(Outpt) Discharge Summary ---
Discharge Summary Reason for Hosp/Final Diag: (1) History of rectal cancer Status: Chronic Hospital Course & Plan: Colonoscopy completed without problems, normal. (2) Fecal incontinence Status: Chronic Departure Discharge to: Home, Self Care Discharge Instructions Home Meds Reported Medications [Zicam] No Conflict Check, 1 PRN 11/04/17 [Replenex Glucosamine] No Conflict Check, 1 TAB PO HS 11/04/17 Cholecalciferol (Vitamin D3) (VITAMIN D3) 1,000 Unit Tablet, 1 TAB PO HS, TAB 11/04/17 Magnesium Oxide (MAGNESIUM) 250 Mg Tablet, 1 TAB PO DAILY 11/04/17 Vit C/E/Zn/Coppr/Lutein/Zeaxan (Preservision Areds 2 Softgel) 1 Each Capsule, 1 CAP PO HS 11/04/17 Glucosam/Chond/Hyalu/Cf Borate (Move Free Joint Health Tablet) 750 Mg-100 Mg- 1.65 Mg-108 Mg Tablet, 1 TAB PO DAILY 11/04/17 Calcium Carb & Cit/Vitamin D3 (CALCIUM + D3 ER TABLET) 1 Each Tablet.er, 1 TAB PO BID Vit D 100 iu Calcium 250mg Nagbesuyn 50mg 11/04/17 Ubidecarenone/Vit E Acetate (CO Q-10 100 MG SOFTGEL) 1 Each Capsule, 1 CAP PO DAILY, CAPSULE 11/04/17 [NaturView] No Conflict Check, 1 TAB PO DAILY Lutien, Zinc Vit C 11/04/17 [ [place] 3] No Conflict Check, 1 CAP PO BID 11/04/17 Lactobacillus Combination No.4 (PROBIOTIC) 1 Each Capsule, 1 EACH PO DAILY, CAPSULE 11/04/17 Docusate Sodium (STOOL SOFTENER) 100 Mg Capsule, 1 CAP PO DAILY, CAPSULE 11/04/17 [Acuity AZ] No Conflict Check, 1 CAP PO BID 11/04/17 Dicyclomine Hcl (DICYCLOMINE HCL) 10 Mg Capsule, 1 TAB PO QID PRN for GAS, CAPSULE 11/04/17 Hydrocortisone 2.5 % 30 GM CREAM (Hydrocortisone 2.5 % 30 GM CREAM) 2.5 % Cre am.appl, 1 MT TP PRN, GM 11/04/17 Mupirocin (Mupirocin) 2 % Oin.pf.mt, 1 MT TOP PRN 9/12/18 Carboxymethylcellulos/Glycerin (Refresh Optive Gel Eye Drops) 1 %-0.9 % Drops.gel, 1 DROP OP PRN 11/04/17 Loteprednol Etabonate (LOTEMAX) 5 Gm Gel..gram., 1 DROP OP PRN 11/04/17 Vit A/Vit C/Vit E/Selenium Yst (Antioxidant Formula Tablet) 1 Each Tablet, 1 TAB PO QDAY 10/23/17 Cyclosporine (RESTASIS) 1 Each Droperette, 1 GTT OP BID 10/23/17 Mineral Oil/Petrolatum,White (REFRESH P.M. OINTMENT) 3.5 Gm Oint...g., 3.5 GM OP BID 05/22/15 Polyeth Glycol/Propylene Glyco (SYSTANE 0.3-0.4% EYE DROPS) 0.05 Ml Soln, 0.05 ML OD QDAY 02/03/14 Multivitamin (DAILY MULTIPLE VITAMIN) 1 Each Tablet, 1 TAB PO QDAY 02/03/14 Fish Oil/[place]-3 Fatty Acids (Fish Oil 1,000 Mg Capsule) 1 Cap Capsule, 2 CAP PO BID 01/07/11 Diet: Regular Activity: As Tolerated Special Instructions: Your colonoscopy was completed without problems and your prep was excellent (Good Job!!). I didn't find any polyps or cancer and the area where your previous surgery was completed in your rectum looks great and is well healed. My office will call you in the next day or two to schedule a follow up appointment to see me back in my office to discuss these results and discuss your hernia. Problem Qualifiers (1) Fecal incontinence: Fecal incontinence type: unspecified Qualified Codes: R15.9 - Full incontinence of feces ELODIA HOLCOMB MD Sep 29, 2018 12:51
[2018-09-29 12:54] VITALS: BP 101/54
[2018-09-29 13:00] VITALS: BP 121/73
[2018-09-29 13:15] VITALS: BP 138/74
[2018-09-29 13:46] VITALS: BP 185/83
[2018-09-29 13:47] VITALS: BP 169/92
== END 2018-09-29 14:00 | disposition home or self-care (01) ==
LOC: OR 00:45
PROVIDERS: ATTEND Surgery
DX: Z12.11 Encounter for screening for malignant neoplasm of colon (principal); Z85.048 Personal history of other malignant neoplasm of rectum, rectosigmoid junction, and anus
CPT/HCPCS: 00812; G0121; J2001; J2704